=== PATIENT | female | born 1995 | race Caucasian/White ===

== ENCOUNTER 2018-04-07 16:28 | Emergency (ER) | payer BC ==
--- NOTE | 2018-04-07 16:44 | PDOC ---
History of Present Illness - General Chief Complaint: Vaginal Bleeding Stated Complaint: VAGINAL BLEEDING Time Seen by Provider: 04/07/18 16:31 - History of Present Illness Initial Comments: 04/07/18 16:42 The patient is a 22 year old female at a self-reported 6 weeks gestation who presents to our ED c/o 1 day h/o vaginal bleed. Patient states she noted a couple of dark red spots in her underwear yesterday and then passed a golf ball sized clot today. Mild abdominal cramping, no fevers/chills, dysuria/ hematuria. Confirmed [place]UP via [place] was February 23, 2018. Patient recently immigrated to the [place] from [place] in [place] 2010. NKDA Surgical: none Social: denies toxic habits OB-Igniter Capper: Dr. Ondina Carrera 04/07/18 18:29 Past History - Past Medical History Allergies/Adverse Reactions: Allergies Allergy/AdvReac Type Severity Reaction Status Date / Time No Known Allergies Allergy Verified 04/07/18 16:30 Home Medications: Ambulatory Orders Folic Acid 1 mg PO DAILY 04/07/18 Pnv,Calcium 72/Iron/Folic Acid [Pnv Plus Multivit Tab] 1 each PO DAILY #30 tablet 04/07/18 Review of Systems - Review of Systems Constitutional: No: Chills, Fever HEENTM: No: Recent change in vision Respiratory: No: Cough, Shortness of Breath Cardiac (ROS): No: Chest Pain, Lightheadedness, Palpitations, Syncope ABD/GI: No: Constipated, Diarrhea, Nausea, Vomiting : Yes: Other (vaginal spotting). No: Burning, Dysuria *Physical Exam - Physical Exam General Appearance: Yes: Nourished, Thin HEENT: positive: Normal Voice, Hearing Grossly Normal Neck: positive: Trachea midline, Supple Respiratory/Chest: positive: Lungs Clear, Normal Breath Sounds. negative: Labored Respiration, Rapid RR Cardiovascular: positive: S1, S2. negative: Edema, JVD Female Pelvic Exam: positive: cervical os closed, other (dark red blood in vaginal vault) Gastrointestinal/Abdominal: positive: Normal Bowel Sounds, Soft Integumentary: positive: Normal Color, Dry, Warm ED Treatment Course - LABORATORY CBC & Chemistry Diagram: 04/07/18 16:52 04/07/18 16:52 Medical Decision Making - Medical Decision Making 04/07/18 16:46 22 year old female @ self-reported 6 weeks gestation. VS unremarkable. Frontal diagnosis: Threatened AB, Spontaneous AB, Molar , Subchorionic Hemmorhage. Will obtain B-HCG, TVUS, Type and Screen (to evaluate for Rhogam). Reassess. 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 Will sign patient out to night team (Dr. Dunbar) for further management. 04/07/18 18:51 B-HCG, 29,558 c/w 6-8 weeks gestation *DC/Admit/Observation/Transfer Diagnosis at time of Disposition: Vaginal bleeding affecting early , Vaginal bleeding during - Discharge Dispostion Disposition: HOME Condition at time of disposition: Good Decision to Admit order: No - Prescriptions Prescriptions: Pnv,Calcium 72/Iron/Folic Acid [Pnv Plus Multivit Tab] 1 each PO DAILY #30 tablet - Referrals - Patient Instructions Printed Discharge Instructions: DI for Vaginal Bleeding During Additional Instructions: Please call Dr. Carrera's office and make an appointment for evaluation on Monday. Return to the ED for any new/worsening/concerning symptoms. - Post Discharge Activity
[2018-04-07 16:56] VITALS: BP 122/77; PULSE 95; TEMP 98.8; BMI 22.6
[2018-04-07 17:11] LABS: BASO % 0.3 % (0-2.0); EOS % 0.5 % (0-4.5); HEMATOCRIT 38.5 % (32.4-45.2); HEMOGLOBIN 12.6 GM/dl (10.7-15.3); LYMPH % 19.5 % (8-40); MCH 25.2 pg (25.7-33.7); MCHC 32.6 g/dl (32.0-36.0); MEAN CELL VOLUME 77.2 fl (80-96); MEAN PLT VOLUME 9.6 fl (7.5-11.1); MONO % 6.2 % (3.8-10.2); NEUT % 73.5 % (42.8-82.8); PLATELET COUNT 191 K/MM3 (134-434); RBC 4.99 M/mm3 (3.60-5.2); RDW 13.3 % (11.6-15.6); WHITE BLOOD COUNT 8.9 K/mm3 (4.0-10.8)
--- NOTE | 2018-04-07 17:13 | PDOC ---
Attending Attestation - Resident Resident Name: Telma Lang - ED Attending Attestation I have performed the following: I have examined & evaluated the patient, The case was reviewed & discussed with the resident, I agree w/resident's findings & plan, Exceptions are as noted - HPI HPI: 04/07/18 17:07 Ms. Dunham is a 22 yo F , 6 weeks by dates (LMP 02/23/18), who presents with 1 day of vaginal bleed. Spotting yesterday, todayPatient states she noted a couple of dark red spots in her underwear yesterday and then passed a golf ball sized clot today. Mild abdominal cramping, no fevers/chills, dysuria/hematuria. Confirmed IUP via [place] L[place] was February 23, 2018. Patient recently immigrated to the [facility] from [place]. NKDA Surgical: none Social: denies toxic habits OB-Food Selector: Dr. Ondina Carrera 04/07/18 17:15 - Physicial Exam PE: 04/07/18 18:19 GENERAL: The patient is in no acute distress. EYES: PERRLA, EOMI, sclera anicteric, conjunctiva clear. ENT: Ears normal, nares patent, oropharynx clear without exudates. Moist mucous membranes. NECK: Normal range of motion, supple LUNGS: Breath sounds equal, clear to auscultation bilaterally. No wheezes, and no crackles. HEART:Regular rate and rhythm, normal S1 and S2 ABDOMEN: Soft, nontender, normoactive bowel sounds. No guarding, no rebound. EXTREMITIES: Normal range of motion NEUROLOGICAL: Cranial nerves II through XII grossly intact. Normal speech. No focal neurological deficits. SKIN: Warm, Dry, normal turgor, no rashes or lesions noted. - Medical Decision Making 04/07/18 18:21 Laboratory Tests 04/07/18 04/07/18 16:52 16:52 WBC 8.9 Hgb 12.6 Hct 38.5 Plt Count 191 BUN 7 Creatinine 0.5 L 04/07/18 18:56 Single live intrauterine gestation at approximately 6 weeks and 0 days, based on today's measurements. heart rate noted at 115 bpm. Amniotic fluid volume appears adequate Small subchorionic hemorrhage. Cervix appears closed. Mild complex area in right ovary probably representing a corpus luteal cyst. Left maternal ovary appears normal. Flow noted in both ovaries. Mild free pelvic fluid. Will discharge to home 04/07/18 18:57 Type and Screen - O NEG *DC/Admit/Observation/Transfer Diagnosis at time of Disposition: Vaginal bleeding affecting early , Vaginal bleeding during - Discharge Dispostion Disposition: HOME Condition at time of disposition: Good Decision to Admit order: No - Prescriptions Prescriptions: Pnv,Calcium 72/Iron/Folic Acid [Pnv Plus Multivit Tab] 1 each PO DAILY #30 tablet - Referrals - Patient Instructions Printed Discharge Instructions: DI for Vaginal Bleeding During Additional Instructions: Please call Dr. Carrera's office and make an appointment for evaluation on Monday. Return to the ED for any new/worsening/concerning symptoms. - Post Discharge Activity
[2018-04-07 17:21] LABS: ALBUMIN 4.2 g/dl (3.4-5.0); ALK PHOS 46 U/L (45-117); ANION GAP 8 MMOL/L (8-16); BILIRUBIN,TOTAL 0.8 mg/dl (0.2-1); BLOOD UREA NITROGEN 7 mg/dl (7-18); CALCIUM 9.1 mg/dl (8.5-10); CHLORIDE 104 mmol/L (98-107); CO2 22 mmol/L (21-32); CREATININE 0.5 mg/dl (0.55-1.3); GLUCOSE,RANDOM 89 mg/dl (74-106); SGOT/AST 19 U/L (15-37); SGPT/ALT 19 U/L (13-61); SODIUM 134 mmol/L (136-145); TOT PROT 6.8 g/dl (6.4-8.2)
== END 2018-04-07 19:15 | disposition home or self-care (01) ==
LOC: FER 16:28
DX: O26.891 Other specified pregnancy related conditions, first trimester (principal); Z3A.01 Less than 8 weeks gestation of pregnancy; N93.9 Abnormal uterine and vaginal bleeding, unspecified
CPT/HCPCS: 36415; 76817-TC; 80053; 84702; 85025; 86850; 86900; 86901; 99281-25

== ENCOUNTER 2018-04-25 21:49 | Emergency (ER) | payer BC ==
--- NOTE | 2018-04-25 21:59 | PDOC ---
History of Present Illness - General History Source: Patient Exam Limitations: No Limitations - History of Present Illness Initial Comments: 04/25/18 22:28 The patient is a 22 year old 8 weeks female A0, with a significant past medical history of anemia (diagnosed 2 weeks ago by OBGYN), who presents to the emergency department with, 1 day of dizziness described as room-spinning and nausea with non-bloody emesis onsetting immediately after waking up. She notes her dizziness is worsened when standing up, she denies any alleviating factors. She notes taking Reglan 10mg twice today, without relief. Patient endorses associated diffuse body aches and intermittent palpitations onsetting at 2pm. Patient is a recent immigrant from [place] (2 months ago). She denies any vaginal bleeding. She denies recent fevers or chills. She denies recent diarrhea or constipation. She denies recent dysuria, frequency, urgency or hematuria. She denies recent chest pain or shortness of breath. Allergies: NKDA Past surgical history: None reported. Social history: Nonsmoker. Denies EtOH use and recreational drug use. LEARNING AND DEVELOPMENT ASSOCIATE: Dr. Carrera <Sergei Bello - Last Filed: 04/25/18 23:16> <Faiza Dunbar - Last Filed: 04/26/18 03:41> - General Chief Complaint: Nausea/Vomiting Stated Complaint: VOMITING/ Time Seen by Provider: 04/25/18 21:58 Past History <Sergei Bello - Last Filed: 04/25/18 23:16> - Past Medical History COPD: No - Reproductive History (#): 1 - Suicide/Smoking/Psychosocial Hx Smoking History: Never smoked Have you smoked in the past 12 months: No Hx Alcohol Use: No Drug/Substance Use Hx: No <Faiza Dunbar - Last Filed: 04/26/18 03:41> - Past Medical History Allergies/Adverse Reactions: Allergies Allergy/AdvReac Type Severity Reaction Status Date / Time No Known Allergies Allergy Verified 04/25/18 22:02 Home Medications: Ambulatory Orders Folic Acid 1 mg PO DAILY 04/07/18 Pnv,Calcium 72/Iron/Folic Acid [Pnv Plus Multivit Tab] 1 each PO DAILY #30 tablet 04/07/18 Metoclopramide HCl 10 mg PO Q8H 04/25/18 Ondansetron [Zofran Odt -] 4 mg SL BID PRN #6 od.tablet 04/25/18 Review of Systems - Review of Systems Able to Perform ROS?: Yes Comments:: 04/25/18 22:29 CONSTITUTIONAL: Absent: fever, chills, diaphoresis, generalized weakness, HEENT: Absent: rhinorrhea, nasal congestion, throat pain, throat swelling, difficulty swallowing, mouth swelling, ear pain, eye pain, visual Changes CARDIOVASCULAR: Absent: chest pain, syncope, palpitations, irregular heart rate, lightheadedness , peripheral edema RESPIRATORY: Absent: cough, shortness of breath, dyspnea with exertion, orthopnea, wheezing, stridor, hemoptysis GASTROINTESTINAL: Present: Nausea, vomiting. Absent: abdominal distension, diarrhea, constipation, melena, hematochezia GENITOURINARY: Absent: dysuria, frequency, urgency, hesitancy, hematuria, flank pain, genital pain MUSCULOSKELETAL: Present: Body aches Absent: arthralgia, joint swelling SKIN: Absent: rash, itching, pallor HEMATOLOGIC/IMMUNOLOGIC: Absent: easy bleeding, easy bruising, lymphadenopathy, frequent infections ENDOCRINE: Absent: unexplained weight gain, unexplained weight loss, heat intolerance, cold intolerance NEUROLOGIC: Present: Dizziness. Absent: focal weakness or paresthesias, unsteady gait, seizure, mental status changes, bladder or bowel incontinence PSYCHIATRIC: Absent: anxiety, depression, suicidal or homicidal ideation, hallucinations. All Other Systems: Reviewed and Negative <Sergei Bello - Last Filed: 04/25/18 23:16> *Physical Exam - Vital Signs Last Vital Signs Temp Pulse Resp BP Pulse Ox 98.1 F 98 H 18 115/66 100 04/25/18 22:09 04/25/18 22:09 04/25/18 22:09 04/25/18 22:09 04/25/18 22:09 - Physical Exam Comments: 04/25/18 22:30 GENERAL: The patient is awake, alert, and fully oriented, in no acute distress. HEAD: Normal with no signs of trauma. EYES: Pupils equal, round and reactive to light, extraocular movements intact, sclera anicteric, conjunctiva clear with no pallor. ENT: +Dry mucous membranes. Ears normal, nares patent, oropharynx clear without exudates. NECK: Normal range of motion, supple without lymphadenopathy, JVD, or masses. LUNGS: Breath sounds equal, clear to auscultation bilaterally. No wheeze/ crackles. HEART: Regular rate and rhythm, normal S1 and S2 without murmur or rub. +ABDOMEN: Mild generalized abdominal discomfort. Soft/nondistended. BS wnl. No guarding or rebound. No palpable masses. No hepatosplenomegaly. EXTREMITIES: Normal range of motion, no edema. No clubbing or cyanosis. No cords, erythema, or tenderness. NEUROLOGICAL: No nystagmus. Cranial nerves II through XII grossly intact. Normal speech, normal gait. PSYCH: Normal mood, normal affect. SKIN: Warm, Dry, normal turgor, no rashes or lesions noted. <Sergei Bello - Last Filed: 04/25/18 23:16> Moderate Sedation - Procedure Monitoring Vital Signs: Procedure Monitoring Vital Signs Temperature 98.1 F 04/25/18 22:09 Pulse Rate 98 H 04/25/18 22:09 Respiratory Rate 18 04/25/18 22:09 Blood Pressure 115/66 04/25/18 22:09 O2 Sat by Pulse Oximetry (%) 100 04/25/18 22:09 <Sergei Bello - Last Filed: 04/25/18 23:16> ED Treatment Course - LABORATORY CBC & Chemistry Diagram: 04/25/18 22:25 04/25/18 22:25 <Sergei Bello - Last Filed: 04/25/18 23:16> - LABORATORY CBC & Chemistry Diagram: 04/25/18 22:25 04/25/18 22:25 <Faiza Dunbar - Last Filed: 04/26/18 03:41> Medical Decision Making - Medical Decision Making Documentation has been prepared under my direction and personally reviewed by me in its entirety. I attest that this documented accurately reflects all work, treatment, procedures and medical decision making performed by me. As noted above, this 22-year-old woman, otherwise healthy, 9 weeks presents with 1 day history of lightheadedness and persistent nausea with vomiting. Patient has had morning vomiting previously during but this episode was different in that she vomited throughout the day including an hour prior to presentation. No other symptoms except for lightheadedness, especially with movement. Patient had received Reglan 10 mg up to 3 times a day by her film critic but states that this was ineffective today. Exam as noted. Patient was given a liter of saline IV along with 4 mg of Zofran IV. CBC and chemistry profile sent. Laboratory evaluation was essentially normal. Patient felt significantly better after hydration and Zofran IV. Nausea and lightheadedness had resolved. Patient was able to ambulate to the bathroom without further lightheadedness/room spinning sensation. Clinical presentation most consistent with acute gastroenteritis. Because Zofran IV was effective for the patient, a small (#6) prescription for Zofran ODT 4 mg will be sent to patient's pharmacy with instructions to use every 8 hours up to twice a day as needed for nausea/vomiting. This patient should maintain a clear liquid diet and advance to solid foods cautiously. Follow-up with her film critic should be within the next few days. She should return to the emergency room if she has recurrent vomiting or severe lightheadedness. <Faiza Dunbar - Last Filed: 04/26/18 03:41> *DC/Admit/Observation/Transfer - Attestations Scribe Attestion: 04/25/18 22:30 Documentation prepared by Sergie Bello, acting as medical claims assistant for Faiza Dunbar MD. <Sergei Bello - Last Filed: 04/25/18 23:16> <Faiza Dunbar - Last Filed: 04/26/18 03:41> Diagnosis at time of Disposition: First trimester Vomiting Qualifiers: Vomiting type: unspecified Vomiting Intractability: non-intractable Nausea presence: with nausea Qualified Code(s): R11.2 - Nausea with vomiting, unspecified - Discharge Dispostion Disposition: HOME Condition at time of disposition: Stable - Prescriptions Prescriptions: Ondansetron [Zofran Odt -] 4 mg SL BID PRN #6 od.tablet PRN Reason: Nausea - Referrals Referrals: Ondina Carrera DO [Primary Care Provider] - - Patient Instructions Printed Discharge Instructions: DI for Vomiting -- Adult Additional Instructions: clear liquids, advance diet slowly ZofranODT 4mg up to twice a day for nausea return to ER if you persistent vomiting/ severe dizziness/ abdominal pain or fever followup with your doctor within the next 5 days - Post Discharge Activity
[2018-04-25] MEDS ORDERED: ONDANSETRON 4 MG/2 ML VIAL IVPUSH ONE (22:16)
[2018-04-25] MEDS ORDERED: SODIUM CHLORIDE 1,000 ML IV STA (22:16)
[2018-04-25] MEDS ORDERED: ONDANSETRON 4 MG/2 ML VIAL ONE (22:21)
[2018-04-25 22:26] VITALS: BP 115/66; PULSE 98; TEMP 98.1; BMI 21.2
[2018-04-25 22:41] LABS: BASO % 0.3 % (0-2.0); EOS % 0.3 % (0-4.5); HEMATOCRIT 37.6 % (32.4-45.2); HEMOGLOBIN 11.9 GM/dl (10.7-15.3); LYMPH % 17.2 % (8-40); MCH 24.4 pg (25.7-33.7); MCHC 31.8 g/dl (32.0-36.0); MEAN CELL VOLUME 76.9 fl (80-96); MEAN PLT VOLUME 9.5 fl (7.5-11.1); NEUT % 75.2 % (42.8-82.8); PLATELET COUNT 204 K/MM3 (134-434); RBC 4.89 M/mm3 (3.60-5.2); RDW 13.6 % (11.6-15.6); WHITE BLOOD COUNT 8.8 K/mm3 (4.0-10.8)
[2018-04-25 22:52] LABS: ALBUMIN 3.7 g/dl (3.4-5.0); ALK PHOS 45 U/L (45-117); ANION GAP 6 MMOL/L (8-16); BILIRUBIN,TOTAL 0.3 mg/dl (0.2-1); BLOOD UREA NITROGEN 5 mg/dl (7-18); CALCIUM 9.2 mg/dl (8.5-10); CHLORIDE 106 mmol/L (98-107); CO2 25 mmol/L (21-32); CREATININE < 0.6 mg/dl (0.55-1.3); GLUCOSE,RANDOM 97 mg/dl (74-106); POTASSIUM 3.6 mmol/L (3.5-5.1); SGOT/AST 17 U/L (15-37); SGPT/ALT 12 U/L (13-61); SODIUM 137 mmol/L (136-145); TOT PROT 6.4 g/dl (6.4-8.2)
== END 2018-04-25 23:16 | disposition home or self-care (01) ==
LOC: FER 21:49
PROC: 3E033GC Introduction of Other Therapeutic Substance into Peripheral Vein, Percutaneous Approach (ICD-10-PCS; principal; 2018-04-25)
PROC: 3E0337Z Introduction of Electrolytic and Water Balance Substance into Peripheral Vein, Percutaneous Approach (ICD-10-PCS; 2018-04-25)
DX: O26.891 Other specified pregnancy related conditions, first trimester (principal); R11.2 Nausea with vomiting, unspecified; D64.9 Anemia, unspecified
CPT/HCPCS: 36415; 80053; 85025; 99281-25; J7030

== ENCOUNTER 2018-11-20 15:40 | Inpatient (IN) | payer BC, OTHER ==
[2018-11-20 16:22] LABS: BASO % 0.3 % (0-2.0); EOS % 0.3 % (0-4.5); HEMATOCRIT 33.9 % (32.4-45.2); HEMOGLOBIN 10.8 GM/dL (10.7-15.3); LYMPH % 17.2 % (8-40); MCH 23.6 pg (25.7-33.7); MCHC 31.8 g/dl (32.0-36.0); MEAN CELL VOLUME 74.4 fl (80-96); MEAN PLT VOLUME 10.9 fl (7.5-11.1); NEUT % 76.2 % (42.8-82.8); PLATELET COUNT 154 K/MM3 (134-434); RBC 4.56 M/mm3 (3.60-5.2); RDW 15.4 % (11.6-15.6); WHITE BLOOD COUNT 9.1 K/mm3 (4.0-10.0)
[2018-11-20 16:44] LABS: INR 0.9 (0.83-1.09); PROTHROMBIN TIME (PATIENT) 10.6 SEC (9.7-13.0)
[2018-11-20 16:45] LABS: BLOOD UREA NITROGEN 7.5 mg/dL (7-18); CALCIUM 8.7 mg/dL (8.5-10.1); CREATININE 0.5 mg/dL (0.55-1.3); POTASSIUM 4.1 mmol/L (3.5-5.1)
[2018-11-20] MEDS ORDERED: PROMETHAZINE HCL 25 MG/1 ML VIAL IVPUSH ONE (17:10)
[2018-11-20] MEDS ORDERED: BUTORPHANOL TARTRATE 1 MG/ML VIAL IVPB ONE (17:10)
--- NOTE | 2018-11-20 17:10 | HP ---
Past Medical History - Primary Care Physician PCP:: Isha Rey - Admission Chief Complaint: IUGR History of Present Illness: 23 yo EDC EGA 28 week admitted due to 4% growth for induction for IUGR History Source: Patient Limitations to Obtaining History: No Limitations - Past Medical History ...: 1 - Past Surgical History Past Surgical History: Yes: None Hx Myomectomy: No Hx Transabdominal Cerclage: No - Smoking History Smoking history: Never smoked Have you smoked in the past 12 months: No - Alcohol/Substance Use Hx Alcohol Use: No History of Substance Use: reports: None Home Medications - Allergies Allergies/Adverse Reactions: Allergies Allergy/AdvReac Type Severity Reaction Status Date / Time No Known Allergies Allergy Verified 11/08/18 12:54 - Home Medications Home Medications: Ambulatory Orders Ibuprofen [Motrin -] 600 mg PO QID #28 tablet 11/22/18 Review of Systems - Review of Systems Constitutional: reports: No Symptoms Eyes: reports: No Symptoms HENT: reports: No Symptoms Neck: reports: No Symptoms Cardiovascular: reports: No Symptoms Respiratory: reports: No Symptoms Gastrointestinal: reports: No Symptoms Genitourinary: reports: No Symptoms Breasts: reports: No Symptoms Reported Musculoskeletal: reports: No Symptoms Integumentary: reports: No Symptoms Neurological: reports: No Symptoms Endocrine: reports: No Symptoms Hematology/Lymphatic: reports: No Symptoms Psychiatric: reports: No Symptoms Physical Exam - Maternity Constitutional: Yes: Well Nourished Breast(s): Yes: WNL - Abdominal Exam/OB Number of Fetuses: Single Presentation: Vertex Heart Rate Location: [facility] Category: I - Vaginal Exam/OB Dilatation (cm): 3 Effacement (%): 80 Amniotic Membrane Status: Intact (cervidil removed) Presentation: Vertex/Position - Physical Exam Musculoskeletal: Yes: WNL Extremities: Yes: WNL Edema: No - Labs Lab Results: CBC, BMP 11/20/18 16:00 11/20/18 15:30 Problem List - Problems (1) Intrauterine growth restriction (IUGR) affecting care of mother, third trimester, single gestation Code(s): O36.5930 - MATERN CARE FOR OTH OR SUSP POOR FETL GRTH, THIRD TRI, UNSP (2) 38 weeks gestation of Code(s): Z3A.38 - 38 WEEKS GESTATION OF Assessment/Plan IUP at 38 week IUGR Plan admit for pitocin induction
[2018-11-20 17:15] VITALS: BMI 23.0
[2018-11-20] MEDS ORDERED: ELECTROLYTE-148 SOLN 1,000 ML IV SCH (17:15)
--- NOTE | 2018-11-20 18:55 | LDN ---
Oxytocin Pre-Use Checklist Date and Time completed: 11/20/18 3819 Physician order on chart: Yes Current history and physical on chart: Yes Indication for induction is documented: Yes record on chart: Yes Pelvis is documented by physician to be clinically adequate: Yes Estimated weight within past week (clinical or sono): Less than 4250 grams in a diabetic woman Gestational age is documented: Yes Consent signed: Yes Physician with privileges: is aware of the induction, is readily available, is documented in the medical record Status of the cervix is assessed and documented: Yes Presentation is assessed and documented: Yes Assessment completed and includes: A minimum of 30 minutes of monitoring is required prior to start, At least 2 accelerations (15bpm x 15sec) in 30 minutes are present, Adequate variability
[2018-11-20] MEDS ORDERED: OXYTOCIN 30 UNITS in 0.9% NS 30 UNIT/500 ML INFUS.BAG IVPB SCH (19:00)
[2018-11-20] MEDS ORDERED: OXYTOCIN 30 UNITS in 0.9% NS 30 UNIT/500 ML INFUS.BAG IVPB ONE (20:02)
[2018-11-21] MEDS ORDERED: BUTORPHANOL TARTRATE 1 MG/ML VIAL ONE ×2 (00:37)
[2018-11-21] MEDS ORDERED: PROMETHAZINE HCL 25 MG/1 ML VIAL ONE (00:37)
--- NOTE | 2018-11-21 01:41 | PN ---
Ante-Partal Exam - Subjective Subjective: Pt sp epidural Vital Signs: Vital Signs Temperature 98.2 F 11/21/18 00:00 Pulse Rate 82 11/21/18 00:00 Respiratory Rate 18 11/21/18 00:00 Blood Pressure 133/70 11/21/18 00:00 O2 Sat by Pulse Oximetry (%) Bleeding: No Headache: No Visual changes: No Right upper quadrant pain: No - Contractions Contractions: Yes Monitor Mode: External - Exam during Labor Variability: Moderate Category: I Exam: Vaginal Dilatation (cm): 9 cm Effacement (%): 100 Amniotic Membrane Status: Ruptured Presentation: Vertex Station: 0 - Intrapartum Hemorrhage Risk Risk Score: 0 Risk Level: Low Risk - Assessment/Plan Assessment/Plan: IUGR Cat 1 GBS neg Plan anticipate vaginal delivery
[2018-11-21] MEDS ORDERED: OXYTOCIN 20 UNITS in 0.9% NS 20 UNIT/1,000 ML INFUS.BAG IV ONE (02:10)
[2018-11-21] MEDS ORDERED: LIDOCAINE HCL 1% PRESERVATIVE FREE - 30ML VIAL ONE (03:21)
--- NOTE | 2018-11-21 03:53 | PN ---
Ante-Partal Exam - Subjective Subjective: Pt with urge to push Vital Signs: Vital Signs Temperature 98.7 F 11/21/18 02:26 Pulse Rate 82 11/21/18 00:00 Respiratory Rate 18 11/21/18 00:00 Blood Pressure 133/70 11/21/18 00:00 O2 Sat by Pulse Oximetry (%) Bleeding: No Headache: No Visual changes: No Right upper quadrant pain: No - Contractions Contractions: Yes - Exam during Labor Variability: Moderate Category: I Monitor Decelerations: None Exam: Vaginal Dilatation (cm): FD Amniotic Membrane Status: Ruptured Amniotic Fluid: Clear Presentation: Vertex Station: +3 - Intrapartum Hemorrhage Risk Risk Score: 0 Risk Level: Low Risk - Assessment/Plan Assessment/Plan: 2nd stage IUGR Plan called anticipate vaginal delivery
[2018-11-21] MEDS ORDERED: METHYLERGONOVINE MALEATE 0.2 MG/1 ML AMP IM PRN (03:54)
[2018-11-21] MEDS ORDERED: BENZOCAINE 20% 57 GM BOTTLE TP PRN (03:54)
[2018-11-21] MEDS ORDERED: BISACODYL 10 MG SUPP.RECT RC PRN (03:54)
[2018-11-21] MEDS ORDERED: BENZOCAINE 28 GM HEMORRHOIDAL OINTMENT PR PRN (03:54)
[2018-11-21] MEDS ORDERED: WITCH HAZEL 50% (TUCKS) 40 PAD/JAR PAD TP PRN (03:54)
--- NOTE | 2018-11-21 03:54 | PN ---
Delivery - Delivery Vaginal Delivery: No Problems ([place] delivered without comp nuchal X2 body cord x 1) Type of Anesthesia: Local, Epidural Episiotomy/Laceration: Right Mediolateral EBL (cc): 450 Delivery, Single - [place] Feeding Plan Initial Plan: Exclusive throughout hospitalization
[2018-11-21] MEDS ORDERED: OXYTOCIN 20 UNITS in 0.9% NS 20 UNIT/1,000 ML INFUS.BAG IV SCH (04:00)
[2018-11-21] MEDS ORDERED: IBUPROFEN 600 MG TABLET (FP) PO ONE (10:27)
[2018-11-21] MEDS ORDERED: ACETAMINOPHEN 325 MG TABLET (FP) ONE (10:27)
[2018-11-21] MEDS: ACETAMINOPHEN 325 MG TABLET (FP) PO PRN ×3 (10:30→21:44)
[2018-11-21] MEDS: IBUPROFEN 600 MG TABLET (FP) PO PRN ×3 (10:30→21:44)
--- NOTE | 2018-11-22 06:30 | PN ---
Post Progress Note - Subjective Subjective: Pt seen/evaluated and doing well. C/O sore perineum, otherwise no complaints. OOB, voiding, tolerating diet. VB minimal. Feels well. Type of Delivery: Vital Signs: Vital Signs Temperature 98.5 F 11/21/18 19:15 Pulse Rate 95 H 11/21/18 19:15 Respiratory Rate 19 11/21/18 19:15 Blood Pressure 113/78 11/21/18 19:15 O2 Sat by Pulse Oximetry (%) 98 11/21/18 04:45 Breast Exam: Yes: Soft Uterus: Yes: Fundus Firm Abdomen/GI: Yes: Abdomen soft Lochia: Yes: Rubra Lochia, amount: Small Extremities: Yes: Calves non-tender Perineum: Yes: Episiotomy Activity: Ambulating - Labs Labs: CBC WBC 9.1 K/mm3 (4.0-10.0) 11/20/18 16:00 RBC 4.56 M/mm3 (3.60-5.2) 11/20/18 16:00 Hgb 10.8 GM/dL (10.7-15.3) 11/20/18 16:00 Hct 33.9 % (32.4-45.2) 11/20/18 16:00 MCV 74.4 fl (80-96) L 11/20/18 16:00 MCH 23.6 pg (25.7-33.7) L 11/20/18 16:00 MCHC 31.8 g/dl (32.0-36.0) L 11/20/18 16:00 RDW 15.4 % (11.6-15.6) 11/20/18 16:00 Plt Count 154 K/MM3 (134-434) 11/20/18 16:00 MPV 10.9 fl (7.5-11.1) 11/20/18 16:00 Absolute Neuts (auto) 7.0 K/mm3 (1.5-8.0) 11/20/18 16:00 Neutrophils % 76.2 % (42.8-82.8) 11/20/18 16:00 Lymphocytes % 17.2 % (8-40) 11/20/18 16:00 Monocytes % 6.0 % (3.8-10.2) 11/20/18 16:00 Eosinophils % 0.3 % (0-4.5) 11/20/18 16:00 Basophils % 0.3 % (0-2.0) 11/20/18 16:00 Nucleated RBC % 0 % (0-0) 11/20/18 16:00 Problem List - Problems (1) Vaginal delivery Code(s): O80 - ENCOUNTER FOR FULL-TERM UNCOMPLICATED DELIVERY Assessment/Plan regular diet PO pain meds await a.m. CBC routine post care
[2018-11-22 07:52] LABS: BASO % 0.3 % (0-2.0); EOS % 0.2 % (0-4.5); HEMATOCRIT 26.3 % (32.4-45.2); HEMOGLOBIN 8.5 GM/dL (10.7-15.3); LYMPH % 13.6 % (8-40); MCH 23.9 pg (25.7-33.7); MCHC 32.2 g/dl (32.0-36.0); MEAN CELL VOLUME 74.3 fl (80-96); MEAN PLT VOLUME 10.1 fl (7.5-11.1); MONO % 4.9 % (3.8-10.2); PLATELET COUNT 129 K/MM3 (134-434); RBC 3.54 M/mm3 (3.60-5.2); RDW 15.4 % (11.6-15.6); WHITE BLOOD COUNT 10.8 K/mm3 (4.0-10.0)
[2018-11-22] MEDS ORDERED: FLU VACCINE QUAD 60 MCG/0.5 ML (MDV 19-20) IM ONE (10:00)
[2018-11-22] MEDS ORDERED: FLU VACC QS2019-20(6MOS UP)/PF 60 MCG/0.5 ML SYRINGE IM ONE ×2 (10:00)
[2018-11-22] MEDS: ACETAMINOPHEN 325 MG TABLET (FP) PO PRN ×2 (12:18→22:09)
[2018-11-22] MEDS: IBUPROFEN 600 MG TABLET (FP) PO PRN ×2 (12:18→22:10)
[2018-11-23] MEDS: IBUPROFEN 600 MG TABLET (FP) PO PRN (08:39)
[2018-11-23] MEDS: ACETAMINOPHEN 325 MG TABLET (FP) PO PRN (08:39)
[2018-11-23 11:13] VITALS: BP 122/79; PULSE 99; TEMP 98.3
== END 2018-11-23 17:45 | disposition home or self-care (01) | DRG 807 ==
LOC: JLDR 15:40 → J3W 11-21 13:10
PROVIDERS: ADMIT Obstetrics & Gynecology; ATTEND Obstetrics & Gynecology
PROC: 10E0XZZ Delivery of Products of Conception, External Approach (ICD-10-PCS; principal; 2018-11-21)
PROC: 0W8NXZZ Division of Female Perineum, External Approach (ICD-10-PCS; 2018-11-21)
DX: O36.5930 Maternal care for other known or suspected poor fetal growth, third trimester, not applicable or unspecified (principal); Z37.0 Single live birth; Z3A.38 38 weeks gestation of pregnancy
CPT/HCPCS: 36415; 36600; 59409; 80048; 82803; 85025; 85610; 85730; 86593; 86850; 86900; 86901; 90686

== ENCOUNTER 2021-02-22 04:38 | Day surgery (SDC) | payer OTHER ==
[2021-02-18 09:16] VITALS: BMI 18.4
[2021-02-22] MEDS ORDERED: IBUPROFEN 400 MG TABLET (FP) PO PRN (07:17)
[2021-02-22] MEDS ORDERED: ACETAMINOPHEN 325 MG TABLET (FP) PO PRN (07:17)
[2021-02-22] MEDS ORDERED: PROPOFOL 20 ML ONE ×2 (07:32→08:22)
[2021-02-22] MEDS ORDERED: MIDAZOLAM HCL 2 MG/2 ML SINGLE DOSE VIAL ONE (07:32)
[2021-02-22] MEDS ORDERED: GLYCOPYRROLATE 0.2 MG/1 ML VIAL ONE (07:33)
[2021-02-22] MEDS ORDERED: LIDOCAINE HCL/PF 2% SDV 5ML VIAL ONE (07:33)
[2021-02-22] MEDS ORDERED: KETOROLAC TROMETHAMINE 30 MG/1 ML VIAL ONE (07:46)
[2021-02-22] MEDS ORDERED: SILVER NITRATE 75% APPLIC STCK 1 PKT EACH TP ONE (08:15)
[2021-02-22] MEDS ORDERED: FERRIC SUBSULFATE 500 ML BOTTLE TP ONE (08:26)
[2021-02-22] MEDS ORDERED: PROMETHAZINE HCL 25 MG/1 ML VIAL IVPUSH PRN (08:40)
[2021-02-22] MEDS ORDERED: ONDANSETRON 4 MG/2 ML VIAL IVPUSH PRN (08:40)
[2021-02-22] MEDS ORDERED: oxyCODONE HCL 5 MG TABLET PO PRN (08:40)
[2021-02-22] MEDS ORDERED: LACTATED RINGERS SOLUTION 1,000 ML IV SCH (08:45)
[2021-02-22] MEDS ORDERED: ONDANSETRON 4 MG/2 ML VIAL ONE (11:56)
[2021-02-22 15:46] VITALS: BP 107/71; PULSE 90; TEMP 98.3
== END 2021-02-22 14:30 | disposition home or self-care (01) ==
LOC: JASU-SURG 04:38
PROVIDERS: ATTEND Obstetrics & Gynecology
PROC: 0UB98ZX Excision of Uterus, Via Natural or Artificial Opening Endoscopic, Diagnostic (ICD-10-PCS; principal; 2021-02-22 07:30)
PROC: 0UDB7ZX Extraction of Endometrium, Via Natural or Artificial Opening, Diagnostic (ICD-10-PCS; 2021-02-22 07:30)
DX: N84.0 Polyp of corpus uteri (principal)
CPT/HCPCS: 81025; 88305-TC; 94760

== ENCOUNTER 2022-01-12 05:55 | Inpatient (IN) | payer OTHER ==
[2022-01-12 06:43] VITALS: BMI 25.1
[2022-01-12] MEDS ORDERED: BUTORPHANOL TARTRATE 1 MG/ML VIAL IVPB PRN (06:59)
[2022-01-12] MEDS ORDERED: DINOPROSTONE 10 MG VAGINAL SUPPOSITORY VG ONE (07:00)
[2022-01-12] MEDS: ELECTROLYTE-148 SOLN 1,000 ML IV SCH (09:30)
[2022-01-12] MEDS ORDERED: AMPICILLIN - 2 GM in SODIUM CHLORIDE 100 ML IVPB ONE (11:00)
[2022-01-12] MEDS ORDERED: AMPICILLIN SODIUM 2 GM VIAL ONE (11:02)
[2022-01-12] MEDS ORDERED: AMPICILLIN SODIUM 1 GM VIAL ONE ×3 (14:42→23:03)
[2022-01-12] MEDS: AMPICILLIN - 1 GM in SODIUM CHLORIDE 100 ML IVPB SCH ×3 (15:00→23:00)
[2022-01-13] MEDS ORDERED: BUTORPHANOL TARTRATE 2 MG/ML VIAL ONE
[2022-01-13] MEDS ORDERED: OXYTOCIN 30 UNITS in 0.9% NS 30 UNIT/500 ML INFUS.BAG IVPB ONE (02:18)
[2022-01-13] MEDS ORDERED: OXYTOCIN 30 UNITS in 0.9% NS 30 UNIT/500 ML INFUS.BAG IVPB SCH (02:30)
[2022-01-13] MEDS: AMPICILLIN - 1 GM in SODIUM CHLORIDE 100 ML IVPB SCH ×2 (03:00→06:50)
[2022-01-13] MEDS ORDERED: AMPICILLIN SODIUM 1 GM VIAL ONE ×2 (03:46→06:47)
[2022-01-13] MEDS: ELECTROLYTE-148 SOLN 1,000 ML IV SCH ×4 (06:00→16:15)
[2022-01-13] MEDS ORDERED: BUPIVACAINE HCL/PF 0.25% (2.5MG/ML) 10 ML VIAL ONE ×2 (09:56→14:58)
[2022-01-13] MEDS: FENTANYL/BUPIVACAINE/NS/PF - PCEA - 50 ML DISP.SYRIN EP SCH ×3 (10:20→17:45)
[2022-01-13] MEDS ORDERED: FENTANYL/BUPIVACAINE/NS/PF - PCEA - 50 ML DISP.SYRIN EP ONE ×3 (10:21→17:46)
[2022-01-13] MEDS ORDERED: NALOXONE HCL 0.4 MG/ML VIAL IVPUSH PRN (10:28)
[2022-01-13] MEDS ORDERED: OXYTOCIN 20 UNITS in 0.9% NS 20 UNIT/1,000 ML INFUS.BAG IV ONE (16:58)
[2022-01-13] MEDS ORDERED: ACETAMINOPHEN 325 MG TABLET (FP) PO PRN (21:23)
[2022-01-13] MEDS ORDERED: METHYLERGONOVINE MALEATE 0.2 MG/1 ML AMP IM PRN (21:23)
[2022-01-13] MEDS ORDERED: BENZOCAINE 20% 57 GM BOTTLE TP PRN (21:23)
[2022-01-13] MEDS ORDERED: oxyCODONE HCL 5 MG TABLET PO PRN (21:23)
[2022-01-13] MEDS ORDERED: BENZOCAINE 28 GM HEMORRHOIDAL OINTMENT TP PRN (21:23)
[2022-01-13] MEDS ORDERED: BISACODYL 10 MG SUPP.RECT RC PRN (21:23)
[2022-01-13] MEDS ORDERED: WITCH HAZEL 50% (TUCKS) 40 PAD/JAR PAD TP PRN (21:23)
[2022-01-13] MEDS ORDERED: OXYTOCIN 20 UNITS in 0.9% NS 20 UNIT/1,000 ML INFUS.BAG IV SCH (21:30)
[2022-01-13] MEDS: IBUPROFEN 600 MG TABLET (FP) PO PRN (22:00)
[2022-01-13] MEDS ORDERED: IBUPROFEN 600 MG TABLET (FP) PO ONE (22:00)
[2022-01-13 22:17] LABS: CORD BASE EXCESS -9.4 mmol/L (0-2); CORD HCO3 17.2 mmHg (20-29); CORD PCO2 40.2 mmHg (30-78); CORD pH 7.25 (7.14-7.44)
[2022-01-13 22:18] LABS: CORD BASE EXCESS -6.7 mmol/L (0-2); CORD HCO3 20.6 mmHg (20-29); CORD PCO2 47.2 mmHg (30-78); CORD pH 7.258 (7.14-7.44)
[2022-01-14] MEDS: IBUPROFEN 600 MG TABLET (FP) PO PRN ×4 (02:05→20:59)
[2022-01-14] MEDS: FERROUS SO4 325 MG TABLET (FP) PO SCH ×3 (08:33→17:44)
[2022-01-14 09:47] LABS: BASO % 0.1 % (0-2.0); EOS % 0.2 % (0-4.5); HEMOGLOBIN 9.8 GM/dL (10.7-15.3); LYMPH % 8.8 % (8-40); MCH 24.3 pg (25.7-33.7); MCHC 32.7 g/dl (32.0-36.0); MEAN CELL VOLUME 74.5 fl (80-96); MEAN PLT VOLUME 9.2 fl (7.5-11.1); MONO % 7.7 % (3.8-10.2); NEUT % 83.2 % (42.8-82.8); PLATELET COUNT 183 10^3/uL (134-434); RBC 4.02 M/mm3 (3.60-5.2); RDW 16.1 % (11.6-15.6); WHITE BLOOD COUNT 12.8 K/mm3 (4.0-10.0)
[2022-01-14] MEDS: PRENATAL VITAMINS W/ FOLIC ACID TABLET (FP) PO SCH (09:59)
[2022-01-14] MEDS: FENTANYL/BUPIVACAINE/NS/PF - PCEA - 50 ML DISP.SYRIN EP SCH (18:58)
[2022-01-14] MEDS: SENNOSIDES/DOCUSATE COMBO (SENNA PLUS) TABLET (UD) PO PRN (21:00)
[2022-01-15] MEDS: IBUPROFEN 600 MG TABLET (FP) PO PRN ×2 (05:50→12:03)
[2022-01-15] MEDS: FERROUS SO4 325 MG TABLET (FP) PO SCH ×3 (08:06→17:41)
[2022-01-15] MEDS: PRENATAL VITAMINS W/ FOLIC ACID TABLET (FP) PO SCH (10:26)
[2022-01-15 23:21] VITALS: RESP 18
[2022-01-16] MEDS: FERROUS SO4 325 MG TABLET (FP) PO SCH (08:25)
[2022-01-16 08:41] VITALS: BP 102/56; PULSE 97; TEMP 98.5
[2022-01-16] MEDS: PRENATAL VITAMINS W/ FOLIC ACID TABLET (FP) PO SCH (09:54)
[2022-01-16] MEDS: SENNOSIDES/DOCUSATE COMBO (SENNA PLUS) TABLET (UD) PO PRN (10:02)
== END 2022-01-16 12:53 | disposition home or self-care (01) | DRG 560 ==
LOC: JLDR 05:55 → J3W 01-13 22:16
PROVIDERS: ADMIT Obstetrics & Gynecology; ATTEND Obstetrics & Gynecology
PROC: 3E0P7VZ Introduction of Hormone into Female Reproductive, Via Natural or Artificial Opening (ICD-10-PCS; 2022-01-12)
PROC: 3E033VJ Introduction of Other Hormone into Peripheral Vein, Percutaneous Approach (ICD-10-PCS; 2022-01-12)
PROC: 10E0XZZ Delivery of Products of Conception, External Approach (ICD-10-PCS; principal; 2022-01-13)
PROC: 0KQM0ZZ Repair Perineum Muscle, Open Approach (ICD-10-PCS; 2022-01-13)
PROC: 10907ZC Drainage of Amniotic Fluid, Therapeutic from Products of Conception, Via Natural or Artificial Opening (ICD-10-PCS; 2022-01-13)
DX: O70.1 Second degree perineal laceration during delivery (principal); O99.824 Streptococcus B carrier state complicating childbirth; Z3A.39 39 weeks gestation of pregnancy; Z37.0 Single live birth
CPT/HCPCS: 36415; 36600; 59409; 82803; 85025

== ENCOUNTER 2022-10-31 05:07 | Day surgery (SDC) | payer OTHER ==
[2022-10-27 15:53] VITALS: BMI 21.6
[2022-10-31] MEDS ORDERED: ONDANSETRON 4 MG/2 ML VIAL IVPUSH PRN ×2 (09:08→11:05)
[2022-10-31] MEDS ORDERED: IBUPROFEN 400 MG TABLET (FP) PO PRN (09:08)
[2022-10-31] MEDS ORDERED: ACETAMINOPHEN 325 MG TABLET (FP) PO PRN (09:08)
[2022-10-31] MEDS ORDERED: PROPOFOL 20 ML ONE (09:39)
[2022-10-31] MEDS ORDERED: LIDOCAINE HCL/PF 2% SDV 5ML VIAL ONE (09:39)
[2022-10-31] MEDS ORDERED: MIDAZOLAM HCL 2 MG/2 ML SINGLE DOSE VIAL ONE (09:40)
[2022-10-31] MEDS ORDERED: ONDANSETRON 4 MG/2 ML VIAL ONE ×2 (10:38→11:37)
[2022-10-31] MEDS ORDERED: KETOROLAC TROMETHAMINE 30 MG/1 ML VIAL ONE (10:38)
[2022-10-31] MEDS ORDERED: ACETAMINOPHEN 1000 MG/100 ML BAG IVPB ONE (11:05)
[2022-10-31] MEDS ORDERED: PROMETHAZINE HCL 25 MG/1 ML VIAL IVPB PRN (11:05)
[2022-10-31] MEDS ORDERED: oxyCODONE HCL 5 MG TABLET PO PRN ×2 (11:05)
[2022-10-31] MEDS ORDERED: ACETAMINOPHEN INJECTION 100 ML IVPB ONE (11:08)
[2022-10-31] MEDS ORDERED: LACTATED RINGERS SOLUTION 1,000 ML IV SCH (11:15)
[2022-10-31 15:10] VITALS: BP 110/65
[2022-10-31 15:24] VITALS: PULSE 85; RESP 18; TEMP 98.6
== END 2022-10-31 15:15 | disposition home or self-care (01) ==
LOC: JASU-SURG 05:07
PROVIDERS: ATTEND Obstetrics & Gynecology
PROC: 0UB98ZZ Excision of Uterus, Via Natural or Artificial Opening Endoscopic (ICD-10-PCS; principal; 2022-10-31 09:30)
DX: D25.0 Submucous leiomyoma of uterus (principal); N84.0 Polyp of corpus uteri
CPT/HCPCS: 81025; 86850; 86900; 86901; 88305-TC; 94760